=== PATIENT | male | born 1960 | race Caucasian/White ===

== ENCOUNTER → 2018-05-22 | Outpatient (CLI) | payer OTHER | LOC: M.LAB 04:39 | DX: E87.6 Hypokalemia (principal) ==

== ENCOUNTER 2019-10-06 09:02 | Emergency (ER) | payer OTHER ==
[~2019-10-06] VITALS: Ht 185.4 cm; Wt 117.9 kg
[2019-10-06] MEDS ORDERED: NORCO 5-325 TA1 EAC2 PO (09:52)
[2019-10-06] MEDS ORDERED: MEDROLDOSEPACK PO (09:52)
[2019-10-06 10:21] VITALS: BP 150/70
== END 2019-10-06 10:21 | disposition home or self-care (01) ==
LOC: M.ERS 09:02
DX: M25.561 Pain in right knee (principal)

== ENCOUNTER → 2019-11-12 | Outpatient (CLI) | payer OTHER ==
[~2019-11-12] MED LIST: MEDROLDOSEPACK PO; NORCO 5-325 TA1 EAC2 PO
== END ==
LOC: M.LAB 09:44
PROVIDERS: ATTEND Orthopaedic Surgery
DX: Z01.812 Encounter for preprocedural laboratory examination (principal); Z20.828 Contact with and (suspected) exposure to other viral communicable diseases; M23.321 Other meniscus derangements, posterior horn of medial meniscus, right knee

== ENCOUNTER → 2019-11-17 | Outpatient (CLI) | payer OTHER | LOC: M.LAB 05:59 | PROVIDERS: ATTEND Anesthesiology | DX: E87.6 Hypokalemia (principal) ==